=== PATIENT | male | born 1950 | race African-American/Black ===

== ENCOUNTER 2023-08-08 12:51 | Emergency (ER) | payer MEDICARE, BC ==
[~2023-08-08 12:51] MED LIST: Sodium Chloride 0.9% 500 ML BAG ONE
[2023-08-08] MEDS ORDERED: Acetaminophen 500 MG TAB ONE (13:16)
[2023-08-08] MEDS ORDERED: Ondansetron ODT 4 MG TAB ONE (13:35)
[2023-08-08 13:59] LABS: SARS-CoV-2 NAA Rapid Test DETECTED (NotDetected)
[2023-08-08] MEDS ORDERED: Ketorolac Tromethamine 30 MG/ML VIAL ONE (14:05)
[2023-08-08 14:38] LABS: ALT (SGPT) 12 U/L (8-55); AST (SGOT) 13 U/L (5-34); Alkaline Phosphatase 73 U/L (40-110); Anion Gap 15 mmol/L (10-20); BUN (Urea Nitrogen) 10 mg/dL (8.4-25.7); Bilirubin, Total 0.5 mg/dL (0.2-1.2); Calc. Creatinine Clearance 0 mL/min (70-130); Calcium 8.8 mg/dL (7.8-10.44); Carbon Dioxide 25 mmol/L (23-31); Chloride 97 mmol/L (98-107); Estimated GFR 68; Globulin 2.9 g/dL (2.4-3.5); Glucose 111 mg/dL (83-110); Potassium 3.5 mmol/L (3.5-5.1); Protein, Total 6.9 g/dL (5.8-8.1); Sodium 133 mmol/L (136-145)
[2023-08-08 14:48] LABS: Red Blood Cell (RBC) Count 4.98 mill/uL (4.70-6.10); White Blood Cell (WBC) Count 11.5 10x3/uL (4.8-10.8)
[2023-08-08 14:49] LABS: %Lymphocytes 3.1 % (21.0-51.0); %Monocytes 5.5 % (0.0-10.0); %Neutrophils 90.6 % (42.0-75.0); Hemoglobin 14.1 g/dL (14.0-18.0); Mean Corpuscular HGB CONC 32.2 g/dL (32.0-36.0); Mean Corpuscular Hemoglobin 28.4 pg (27.0-31.0); Mean Corpuscular Volume 88.2 fl (78.0-98.0); Mean Platelet Volume 7.4 fL (7.4-10.4); Platelet Count 220 10x3/uL (130-400); RBC Distribution Width 12.6 % (11.5-14.5)
[2023-08-08 14:50] LABS: #Basophils 0.1 thou/uL (0.0-0.2); #Lymphocytes 0.4 thou/uL (1.20-3.40); #Monocytes 0.6 thou/uL (0.11-0.59); #Neutrophils 10.4 thou/uL (1.40-6.50); %Basophils 0.9 % (0.0-1.0)
[2023-08-08 15:07] LABS: Lymphocytes 3 % (21-51); MDiff Complete? YES; Monocytes 3 % (0-10); Neutrophil 93 % (42-75)
== END 2023-08-08 15:52 | disposition home or self-care (01) ==
LOC: MADERS 12:51
DX: U07.1 COVID-19 (principal); E78.00 Pure hypercholesterolemia, unspecified; I10 Essential (primary) hypertension; Z79.899 Other long term (current) drug therapy
CPT/HCPCS: 71046; 80053; 85025; 87804; 96361; 96374; J1885; J7030; Q0162; U0002

== ENCOUNTER 2025-08-12 18:28 | Emergency (ER) | payer MEDICARE, OTHER ==
[2025-08-12] MEDS ORDERED: Ibuprofen 600 MG TAB ONE (18:49)
[2025-08-12] MEDS ORDERED: Oseltamivir 75 MG CAP ONE (19:36)
== END 2025-08-12 19:40 | disposition home or self-care (01) ==
LOC: MADERS 18:28
DX: J10.1 Influenza due to other identified influenza virus with other respiratory manifestations (principal); E78.00 Pure hypercholesterolemia, unspecified; I10 Essential (primary) hypertension; Z79.899 Other long term (current) drug therapy
CPT/HCPCS: 87428; 99283